=== PATIENT | female | born 1975 | race Caucasian/White ===

== ENCOUNTER 2020-02-25 22:28 | Emergency (ER) | payer MEDICAID ==
[~2020-02-25] VITALS: Ht 160 cm; Wt 90.7 kg
--- NOTE | 2020-02-25 22:53 | NUR ---
ED Nurse Note: Patient walked into ED wanting to get evaluated due to partner exhibiting penile discharge. patient denies any painful urination or discharge. patient ao4 with no acute distress. vitals stable. denies any symptoms. all safety measures met.
[2020-02-25 22:54] VITALS: BP 170/85
--- NOTE | 2020-02-25 23:05 | Emergency Room Report ---
History of Present Illness General Chief Complaint: General Complaint Source: Patient Present Illness HPI This is a 44-year-old female with history of high blood pressure. She presents with chief complaint of STD exposure. Her boyfriend cheated on her and now he has a discharge. He brought her in for evaluation. Patient denies any symptoms. No discharge. No dysuria. No other complaint. Allergies: Coded Allergies: No Known Allergies (Unverified , 02/25/20) COVID-19 Screening Contact w/high risk pt: No Experienced COVID-19 symptoms?: No COVID-19 Testing performed COLLECTIONS ANALYST: No Patient History Past Medical History: see triage record, old chart reviewed, HTN Past Surgical History: none Pertinent Family History: none Social History: Denies: smoking Last Menstrual Period: january 2020 Now: No Immunizations: other Reviewed Nursing Documentation: PMH: Agreed; PSxH: Agreed Nursing Documentation-PMH Past Medical History: No History, Except For Hx Hypertension: Yes Review of Systems Eye: Denies: eye pain, blurred vision ENT: Denies: ear pain, nose congestion, throat swelling Respiratory: Denies: cough, shortness of breath Cardiovascular: Denies: chest pain, palpitations Gastrointestinal: Denies: abdominal pain, diarrhea, nausea, vomiting Musculoskeletal: Denies: back pain, joint pain Skin: Denies: rash Neurological: Denies: headache, numbness Endocrine: Denies: increased thirst, increased urine Hematologic/Lymphatic: Denies: easy bruising All Other Systems: negative except mentioned in HPI Physical Exam Vital Signs Date Time Temp Pulse Resp B/P (MAP) Pulse Ox O2 Delivery O2 Flow Rate FiO2 02/25/20 22:42 97.5 105 18 170/85 (113) 95 Room Air Vitals with high blood pressure Sp02 EP Interpretation: reviewed, normal General Appearance: well appearing, no apparent distress, alert Head: normocephalic, atraumatic Eyes: bilateral eye PERRL, bilateral eye EOMI ENT: hearing grossly normal, normal pharynx Neck: full range of motion, supple, no meningismus Respiratory: chest non-tender, lungs clear, normal breath sounds Cardiovascular #1: regular rate, rhythm, no murmur Gastrointestinal: normal bowel sounds, non tender, no mass, no organomegaly, no bruit, non-distended Musculoskeletal: back normal, normal range of motion, gait/station normal Psychiatric: mood/affect normal Medical Decision Making Diagnostic Impression: Primary Impression: STD exposure Additional Impression: Hypertension Qualified Codes: I10 - Essential (primary) hypertension ER Course Patient here for STD exposure. Will treat for gonorrhea chlamydia. Recommend outpatient testing for HIV, hepatitis, syphilis and other STD. Also recommend getting her yearly Pap smear. Last Vital Signs Date Time Temp Pulse Resp B/P (MAP) Pulse Ox O2 Delivery O2 Flow Rate FiO2 02/25/20 22:54 97.5 73 18 170/85 95 Room Air Status: unchanged Disposition: HOME, SELF-CARE Condition: Stable Referrals: [facility],REFERRING (PCP) Additional Instructions: Follow-up with your doctor in 7 days as needed. Recommend getting yearly Pap smear. Also recommend getting outpatient testing for HIV, hepatitis, syphilis and other STDs. Return if symptoms worsen. Louie Jean MD Feb 25, 2020 23:05
[2020-02-25 23:15] VITALS: BP 170/85
[2020-02-25] MEDS ORDERED: Lidocaine 1% MPF 10mg/ml 5ml INJ ONE (23:15)
[2020-02-25] MEDS ORDERED: Azithromycin 250mg tab ORAL ONE (23:15)
--- NOTE | 2020-02-25 23:15 | NUR ---
ER DISCHARGE NOTE: Patient is cleared to be discharged per ERMD, pt is aox4, on room air, with stable vital signs. pt was given dc instructions, pt was able to verbalize understanding, pt id band removed. pt is able to ambulate with steady gait. pt took all belongings.
== END 2020-02-25 23:15 | disposition home or self-care (01) ==
LOC: EMR 22:46
DX: Z20.2 Contact with and (suspected) exposure to infections with a predominantly sexual mode of transmission (principal); I10 Essential (primary) hypertension
CPT/HCPCS: 96372; J0696; Q0144; Z7502; 99283